=== PATIENT | male | born 1960 | race Caucasian/White ===

== ENCOUNTER 2019-07-07 14:55 | Emergency (ER) | payer MEDICARE, MEDICAID ==
[~2019-07-07] VITALS: Ht 165.1 cm; Wt 51.0 kg
[~2019-07-07 14:55] MED LIST: AZEL30SP BOTHNARES; CARV3.12 PO; DOLU50TA PO; EFAV600T PO; EMTR1TAB18 PO; ESCI10TA45 PO; FLO0.4C PO; FLUO15OI15 TP; FLUT16SP2 NS; IBUP-1984 PO; LAMI1TAB40 PO; LORA1TAB PO; QUET-1 PO; REM15T PO; TEST1.25 TD; [UNRECOGNIZED DRUG - CODE] PO; [UNRECOGNIZED DRUG - OTHER] INH
[2019-07-07 16:02] LABS: CLARITY,URINE CLEAR (Clear); COLOR,URINE YELLOW (Yellow); GLUCOSE, URINE NEGATIVE (Neg); KETONES,URINE NEGATIVE (Neg); LEUKOCYTE ESTERASE ,URINE NEGATIVE (Neg); NITRITES, URINE NEGATIVE (Neg); OCCULT BLOOD,URINE NEGATIVE (Neg); PROTEIN,URINE NEGATIVE (Neg); UROBILINOGEN,URINE 0.2 E.U/dL (0.2-1.0)
[2019-07-07 16:03] LABS: UA COLLECTION TYPE URINAL
[2019-07-07 16:11] LABS: BASOPHILS # (AUTO) 0.1 X10'3 (0-0.2); BASOPHILS % (AUTO) 0.6 % (0-1); EOSINOPHILS # (AUTO) 0.1 X10'3 (0-0.9); HEMATOCRIT 43.5 % (42.0-52.0); LYMPHOCYTES # (AUTO) 3.5 X10'3 (1.1-4.8); LYMPHOCYTES % (AUTO) 32.6 % (21-51); MEAN CORPUSCULAR HEMOGLOBIN 32.4 PG (27.0-31.0); MEAN CORPUSCULAR HGB CONC 34.5 g/dL (33.0-36.5); MEAN CORPUSCULAR VOLUME 93.7 FL (78-98); MEAN PLATELET VOLUME 8.2 FL (7.4-10.4); NEUTROPHILS # (AUTO) 6.1 X10'3 (1.8-7.7); NEUTROPHILS % (AUTO) 56.8 % (42-75); PLATELET COUNT 176 X10'3 (140-440); RED BLOOD COUNT 4.64 X10'6 (4.70-6.10); RED CELL DISTRIBUTION WIDTH 13.7 % (11.5-14.5); WHITE BLOOD COUNT 10.7 X10'3 (4.5-11.0)
[2019-07-07 16:23] LABS: PARTIAL THROMBOPLASTIN TIME 26 SECONDS (22-32)
[2019-07-07 16:25] LABS: ALANINE AMINOTRANSFERASE 18 U/L (12-78); ALBUMIN 3.9 G/DL (3.4-5.0); ALKALINE PHOSPHATASE 82 IU/L (46-116); ANION GAP 10 (8-16); ASPARTATE AMINO TRANSFERASE 17 U/L (10-37); BILIRUBIN,TOTAL 0.5 MG/DL (0.1-1.0); BLOOD UREA NITROGEN 14 MG/DL (7-18); BUN/CREATININE RATIO 14.3 (5.4-32.0); CALCIUM 8.7 MG/DL (8.5-10.1); CHLORIDE 102 MMOL/L (99-107); CREATININE 0.98 MG/DL (0.60-1.10); GLUCOSE 96 MG/DL (70-104); MAGNESIUM 1.9 MG/DL (1.5-2.4); POTASSIUM 3.9 MMOL/L (3.5-5.1); SODIUM 140 MMOL/L (135-145); TOTAL CARBON DIOXIDE 27.9 MMOL/L (24-32); TOTAL PROTEIN 7.7 G/DL (6.4-8.2); eGFR 78 ML/MIN
[2019-07-07] MEDS ORDERED: LEVO750T21 PO (17:45)
--- NOTE | 2019-07-07 17:49 | NUR ---
pt. went to the bathroom, when he returned pt. O2 sats went down and was tachycardic. dr. quarles, was in room and he will continue to monitor.
[2019-07-07] MEDS ORDERED: methylPREDNISolone sod succ 125mg/2ml vial IV ONE (17:50)
[2019-07-07] MEDS ORDERED: ipratropium/albuterol 3ml nebule NEB ONE ×2 (17:50→21:30)
--- NOTE | 2019-07-07 18:57 | NUR ---
pt states he is breathing better aftering taking a steroid. No s/s of respiratory distress. Pt eating crackers and drinking juice. He was given warm blankets at this request. Paged RT for breathing tx.
[2019-07-07 19:02] LABS: TROPONIN I < 0.04 NG/ML (0.0-0.05)
[2019-07-07] MEDS ORDERED: normal saline 1000ML IV soln IVB ONE (20:15)
--- NOTE | 2019-07-07 21:23 | NUR ---
pt was voiding in urinal at bedside and called out for help. He appeared to be SOB and states "i can't breath" Pt was 83% on RA. He was then placed on 3L and his Saturation went up to 96%. His lungs are clear except his anuel lower lungs are mildly diminished with mild wheezing. Dr. Manzano was notified and he assessed the pt. He would like pt to ambulate with someone but this time with an oximeter to see if patient's saturations drop. Pt is now resting comfortable and his O2 was turned off. His saturations are at 95% on RA. IV fluids still runing. 2nd Liter to be given next.
--- NOTE | 2019-07-07 21:29 | NUR ---
pt ambulated around the unit with a pulse ox, his saturation dropped to 92% and pulse in the 120's. aware. New order received for pt to get another breathing tx.
[2019-07-07 22:02] VITALS: BP 163/102
== END 2019-07-07 22:14 | disposition home or self-care (01) ==
LOC: ER 14:56
DX: J40 Bronchitis, not specified as acute or chronic (principal); I10 Essential (primary) hypertension; R79.1 Abnormal coagulation profile; F12.90 Cannabis use, unspecified, uncomplicated; Z87.442 Personal history of urinary calculi; Z86.19 Personal history of other infectious and parasitic diseases; Z60.2 Problems related to living alone; Z91.011 Allergy to milk products; Z79.899 Other long term (current) drug therapy
CPT/HCPCS: 36415; 71045; 80053; 81003; 83605; 83735; 84145; 84484; 85025; 85610; 85730; 87040; 93005; 94640; 96374; 99284; J2930; J7030; 94760

== ENCOUNTER 2020-06-29 11:55 | Emergency (ER) | payer MEDICARE, MEDICAID ==
[~2020-06-29] VITALS: Ht 165.1 cm; Wt 53.8 kg
[2020-06-29 12:45] LABS: CLARITY,URINE CLEAR (Clear); COLOR,URINE YELLOW (Yellow); GLUCOSE, URINE NEGATIVE (Neg); KETONES,URINE NEGATIVE (Neg); LEUKOCYTE ESTERASE ,URINE NEGATIVE (Neg); NITRITES, URINE NEGATIVE (Neg); OCCULT BLOOD,URINE NEGATIVE (Neg); PROTEIN,URINE NEGATIVE (Neg); UROBILINOGEN,URINE 0.2 E.U/dL (0.2-1.0)
[2020-06-29 12:47] LABS: UA COLLECTION TYPE CLN CATCH MIDSTREAM
[2020-06-29 13:12] LABS: BASOPHILS # (AUTO) 0.1 X10'3 (0-0.2); BASOPHILS % (AUTO) 1.2 % (0-1); EOSINOPHILS # (AUTO) 0.2 X10'3 (0-0.9); EOSINOPHILS % (AUTO) 2.9 % (0-6); HEMATOCRIT 47.6 % (42.0-52.0); HEMOGLOBIN 16.2 g/dl (14.0-17.9); LYMPHOCYTES % (AUTO) 30.6 % (21-51); MEAN CORPUSCULAR HEMOGLOBIN 31.4 PG (27.0-31.0); MEAN CORPUSCULAR HGB CONC 34.1 g/dL (33.0-36.5); MEAN PLATELET VOLUME 7.5 FL (7.4-10.4); MONOCYTES # (AUTO) 0.9 X10'3 (0-0.9); MONOCYTES % (AUTO) 13.4 % (2-12); NEUTROPHILS # (AUTO) 3.5 X10'3 (1.8-7.7); NEUTROPHILS % (AUTO) 51.9 % (42-75); PLATELET COUNT 282 X10'3 (140-440); RED BLOOD COUNT 5.17 X10'6 (4.70-6.10); RED CELL DISTRIBUTION WIDTH 13.4 % (11.5-14.5); WHITE BLOOD COUNT 6.7 X10'3 (4.5-11.0)
[2020-06-29 13:28] LABS: ALANINE AMINOTRANSFERASE 33 U/L (12-78); ALBUMIN 4.5 G/DL (3.4-5.0); ALBUMIN/GLOBULIN RATIO 1.1 (1.1-1.5); ALKALINE PHOSPHATASE 84 IU/L (46-116); ANION GAP 10 (8-16); ASPARTATE AMINO TRANSFERASE 27 U/L (10-37); BILIRUBIN,TOTAL 0.4 MG/DL (0.1-1.0); BLOOD UREA NITROGEN 13 MG/DL (7-18); BUN/CREATININE RATIO 11.6 (5.4-32.0); CALCIUM 9.6 MG/DL (8.5-10.1); CHLORIDE 102 MMOL/L (99-107); CREATININE 1.12 MG/DL (0.60-1.10); GLUCOSE 109 MG/DL (70-104); POTASSIUM 4.3 MMOL/L (3.5-5.1); SODIUM 139 MMOL/L (135-145); TOTAL CARBON DIOXIDE 27.3 MMOL/L (24-32); TOTAL PROTEIN 8.7 G/DL (6.4-8.2); eGFR 67 ML/MIN
[2020-06-29] MEDS ORDERED: GABA-530 PO (14:43)
[2020-06-30] MEDS ORDERED: DICL25TA10 PO (09:21)
[2020-06-30] MEDS ORDERED: ESCI20TA45 PO (10:12)
[2020-06-30] MEDS ORDERED: HYDR-3965 PO (10:13)
[2020-06-30] MEDS ORDERED: ZOLP5TAB8 PO (10:14)
== END 2020-06-29 15:06 | disposition home or self-care (01) ==
LOC: ER 11:56
DX: M79.641 Pain in right hand (principal); M79.631 Pain in right forearm; R73.03 Prediabetes; F12.90 Cannabis use, unspecified, uncomplicated; I10 Essential (primary) hypertension; Z87.442 Personal history of urinary calculi; Z21 Asymptomatic human immunodeficiency virus [HIV] infection status; Z91.011 Allergy to milk products; Z79.899 Other long term (current) drug therapy
CPT/HCPCS: 36415; 71045; 80053; 81003; 83605; 84145; 85025; 87040; 99284

== ENCOUNTER 2020-06-30 06:50 | Emergency (ER) | payer MEDICARE, MEDICAID ==
[~2020-06-30] VITALS: Ht 165.1 cm; Wt 54.1 kg
[~2020-06-30 06:50] MED LIST changes: +GABA-530 PO
[2020-06-30] MEDS ORDERED: normal saline 1000ML IV soln IV ONE (07:10)
[2020-06-30 08:06] LABS: BASOPHILS # (AUTO) 0.1 X10'3 (0-0.2); BASOPHILS % (AUTO) 0.9 % (0-1); EOSINOPHILS # (AUTO) 0.1 X10'3 (0-0.9); EOSINOPHILS % (AUTO) 0.6 % (0-6); HEMATOCRIT 47.5 % (42.0-52.0); HEMOGLOBIN 16.3 g/dl (14.0-17.9); LYMPHOCYTES # (AUTO) 2.2 X10'3 (1.1-4.8); LYMPHOCYTES % (AUTO) 18.7 % (21-51); MEAN CORPUSCULAR HEMOGLOBIN 31.5 PG (27.0-31.0); MEAN CORPUSCULAR HGB CONC 34.3 g/dL (33.0-36.5); MEAN CORPUSCULAR VOLUME 91.9 FL (78-98); MEAN PLATELET VOLUME 7.7 FL (7.4-10.4); MONOCYTES % (AUTO) 8.9 % (2-12); NEUTROPHILS # (AUTO) 8.2 X10'3 (1.8-7.7); NEUTROPHILS % (AUTO) 70.9 % (42-75); PLATELET COUNT 257 X10'3 (140-440); RED BLOOD COUNT 5.17 X10'6 (4.70-6.10); RED CELL DISTRIBUTION WIDTH 13.2 % (11.5-14.5); WHITE BLOOD COUNT 11.6 X10'3 (4.5-11.0)
[2020-06-30 08:18] LABS: ALBUMIN 4.3 G/DL (3.4-5.0); ANION GAP 11 (8-16); BLOOD UREA NITROGEN 10 MG/DL (7-18); BUN/CREATININE RATIO 9.8 (5.4-32.0); CALCIUM 9.2 MG/DL (8.5-10.1); CHLORIDE 100 MMOL/L (99-107); CREATININE 1.02 MG/DL (0.60-1.10); GLUCOSE 151 MG/DL (70-104); POTASSIUM 3.9 MMOL/L (3.5-5.1); SODIUM 136 MMOL/L (135-145); TOTAL CARBON DIOXIDE 25.4 MMOL/L (24-32); eGFR 74 ML/MIN
[2020-06-30] MEDS ORDERED: DICL25TA10 PO (09:21)
[2020-06-30] MEDS ORDERED: HYDROcodone/acetaminophen 5mg/325mg tablet PO ONE (09:25)
[2020-06-30] MEDS ORDERED: ESCI20TA45 PO (10:12)
[2020-06-30] MEDS ORDERED: HYDR-3965 PO (10:13)
[2020-06-30] MEDS ORDERED: ZOLP5TAB8 PO (10:14)
[2020-06-30] MEDS ORDERED: normal saline 1000ML IV soln IVB ONE (11:30)
--- NOTE | 2020-06-30 14:29 | NUR ---
CALLED JUANPABLO LEIVA AT [phone] TO [employer] UNIT OPERATOR PT. PER JUANPABLO SHE WILL BE THERE IN 30 MINS.
[2020-06-30 14:43] VITALS: BP 161/105
== END 2020-06-30 14:46 | disposition home or self-care (01) ==
LOC: ER 06:50
DX: M79.601 Pain in right arm (principal); M79.602 Pain in left arm; R00.0 Tachycardia, unspecified; M79.642 Pain in left hand; M79.641 Pain in right hand; I10 Essential (primary) hypertension; F12.90 Cannabis use, unspecified, uncomplicated; Z86.19 Personal history of other infectious and parasitic diseases; Z87.442 Personal history of urinary calculi; Z60.2 Problems related to living alone; Z91.011 Allergy to milk products; Z79.899 Other long term (current) drug therapy
CPT/HCPCS: 36415; 80048; 85025; 85651; 86140; 96360; 96361; 99285; J7030

== ENCOUNTER 2023-02-23 12:55 | Emergency (ER) | payer MEDICARE, MEDICAID ==
[~2023-02-23] VITALS: Ht 165.1 cm; Wt 54.5 kg
[~2023-02-23 12:55] MED LIST changes: -AZEL30SP BOTHNARES; -EFAV600T PO; -ESCI10TA45 PO; +ESCI20TA39 PO; -FLO0.4C PO; -FLUO15OI15 TP; -GABA-530 PO; +HYDR-3965 PO; -IBUP-1984 PO; -LAMI1TAB40 PO; -LORA1TAB PO; -REM15T PO; -TEST1.25 TD; +ZOLP5TAB8 PO; -[UNRECOGNIZED DRUG - CODE] PO
[2023-02-23 13:01] VITALS: BP 133/110
[2023-02-23] MEDS ORDERED: HYDROcodone/acetaminophen 10/325mg tab PO ONE (13:50)
[2023-02-23] MEDS ORDERED: HYDR-3973 PO (13:59)
== END 2023-02-23 14:04 | disposition home or self-care (01) ==
LOC: ER 12:56
DX: M54.40 Lumbago with sciatica, unspecified side (principal); G89.29 Other chronic pain; Z76.0 Encounter for issue of repeat prescription; I10 Essential (primary) hypertension; F12.10 Cannabis abuse, uncomplicated; Z91.011 Allergy to milk products; Z79.899 Other long term (current) drug therapy
CPT/HCPCS: 99283

== ENCOUNTER 2023-09-02 07:13 | Emergency (ER) | payer MEDICARE, MEDICAID ==
[~2023-09-02] VITALS: Ht 165.1 cm; Wt 53.4 kg
[2023-09-02 07:22] VITALS: BP 145/98; PULSE 111; O2SAT 96
[2023-09-02] MEDS ORDERED: HYDROcodone/acetaminophen 5mg/325mg tablet PO ONE (08:55)
[2023-09-02 09:58] VITALS: RESP 16
== END 2023-09-02 09:58 | disposition home or self-care (01) ==
LOC: ER 07:14
DX: S16.1XXA Strain of muscle, fascia and tendon at neck level, initial encounter (principal); S46.911A Strain of unspecified muscle, fascia and tendon at shoulder and upper arm level, right arm, initial encounter; S66.912A Strain of unspecified muscle, fascia and tendon at wrist and hand level, left hand, initial encounter; I10 Essential (primary) hypertension; F12.90 Cannabis use, unspecified, uncomplicated; Z91.011 Allergy to milk products; Z79.899 Other long term (current) drug therapy; V89.2XXA Person injured in unspecified motor-vehicle accident, traffic, initial encounter; Y93.89 Activity, other specified; Y92.89 Other specified places as the place of occurrence of the external cause; Y99.8 Other external cause status
CPT/HCPCS: 72040; 73010; 73110; 99284

== ENCOUNTER 2023-11-21 09:19 | Outpatient (CLI) | payer MEDICARE, MEDICAID | END 2023-11-21 23:59 | disposition home or self-care (01) | LOC: RAD 09:19 | PROVIDERS: ATTEND Nurse Practitioner | DX: J44.1 Chronic obstructive pulmonary disease with (acute) exacerbation (principal) | CPT/HCPCS: 71046 ==

== ENCOUNTER 2024-07-16 18:21 | Inpatient (IN) | payer MEDICARE, MEDICAID ==
[~2024-07-16] VITALS: Ht 165.1 cm; Wt 55.0 kg
[2024-07-16 20:51] LABS: BASOPHILS # (AUTO) 0.1 X10'3 (0-0.2); BASOPHILS % (AUTO) 0.4 % (0-1); EOSINOPHILS # (AUTO) 0.1 X10'3 (0-0.9); EOSINOPHILS % (AUTO) 0.4 % (0-6); HEMATOCRIT 40.7 % (42.0-52.0); HEMOGLOBIN 13.6 g/dl (14.0-17.9); LYMPHOCYTES # (AUTO) 2.3 X10'3 (1.1-4.8); LYMPHOCYTES % (AUTO) 13.7 % (21-51); MEAN CORPUSCULAR HEMOGLOBIN 31.1 PG (27.0-31.0); MEAN CORPUSCULAR HGB CONC 33.5 g/dL (33.0-36.5); MEAN CORPUSCULAR VOLUME 92.8 FL (78-98); MEAN PLATELET VOLUME 7.8 FL (7.4-10.4); MONOCYTES # (AUTO) 1.2 X10'3 (0-0.9); NEUTROPHILS # (AUTO) 13.4 X10'3 (1.8-7.7); NEUTROPHILS % (AUTO) 78.5 % (42-75); PLATELET COUNT 227 X10'3 (140-440); RED BLOOD COUNT 4.39 X10'6 (4.70-6.10); RED CELL DISTRIBUTION WIDTH 13.5 % (11.5-14.5); WHITE BLOOD COUNT 17.1 X10'3 (4.5-11.0)
[2024-07-16] MEDS: acetaminophen 325mg tablet PO STA (20:54)
[2024-07-16] MEDS: normal saline 1000ml 1,000 ML IV ONE (20:54)
[2024-07-16] MEDS: ipratropium/albuterol 3ml nebule NEB ONE (21:04)
[2024-07-16 21:05] VITALS: PULSE 104; O2SAT 91
[2024-07-16 21:10] VITALS: PULSE 110; RESP 18; O2SAT 90
[2024-07-16 21:28] LABS: ALBUMIN 3.9 G/DL (3.4-5.0); ANION GAP 9 (8-16); BLOOD UREA NITROGEN 18 MG/DL (7-18); BUN/CREATININE RATIO 15.5 (10.0-20.0); CALCIUM 8.9 MG/DL (8.5-10.1); CHLORIDE 98 MMOL/L (99-107); CREATININE 1.16 MG/DL (0.60-1.10); GLUCOSE 113 MG/DL (70-104); MAGNESIUM 2.1 MG/DL (1.5-2.4); POTASSIUM 4.2 MMOL/L (3.5-5.1); SODIUM 137 MMOL/L (135-145); TOTAL CARBON DIOXIDE 29.9 MMOL/L (24-32); eCRCL 50 ML/MIN; eGFR 63 ML/MIN
[2024-07-16 21:35] LABS: BILIRUBIN,URINE NEGATIVE (Neg); CLARITY,URINE CLEAR (Clear); COLOR,URINE YELLOW (Yellow); GLUCOSE, URINE NEGATIVE (Neg); KETONES,URINE NEGATIVE (Neg); LEUKOCYTE ESTERASE ,URINE NEGATIVE (Neg); NITRITES, URINE NEGATIVE (Neg); OCCULT BLOOD,URINE NEGATIVE (Neg); PROTEIN,URINE NEGATIVE (Neg); UROBILINOGEN,URINE 0.2 E.U/dL (0.2-1.0)
[2024-07-16 21:40] LABS: UA COLLECTION TYPE CLN CATCH MIDSTREAM
[2024-07-16 22:03] LABS: PRO BRAIN NATRIURETIC PEPTIDE 502 PG/ML (0-125)
[2024-07-16] MEDS: CefTRIAXone 2gm/D5W 50ml BAG 50 ML IV SCH (22:43)
[2024-07-16] MEDS: azithromycin/NS 500mg/250ml 250 ML IV ONE (22:47)
[2024-07-16] MEDS: normal saline 1000ml 1,000 ML IV SCH ×2 (23:10→23:52)
[2024-07-16] MEDS ORDERED: magnesium sulf-water 2g/50mL 50 ML IV PRN (23:10)
[2024-07-16] MEDS ORDERED: potassium Cl 40MEQ/1/2NS 520ml 520 ML IV PRN (23:10)
[2024-07-16] MEDS ORDERED: mag hydrox/Alum hydrox/simeth 30ml oral suspension PO PRN (23:10)
[2024-07-16] MEDS ORDERED: magnesium Cl slow-release 64mg tablet PO PRN (23:10)
[2024-07-16] MEDS ORDERED: magnesium sulf-water 4G/100mL 100 ML IV PRN (23:10)
[2024-07-16] MEDS ORDERED: potassium Cl 20 mEq SR tablet PO PRN ×2 (23:10)
[2024-07-16] MEDS ORDERED: magnesium hydroxide 30ml (MOM) UD suspension PO PRN (23:10)
[2024-07-16] MEDS ORDERED: ondansetron/PF 4mg/2ml inj IV PRN (23:10)
[2024-07-16] MEDS ORDERED: acetaminophen 325mg tablet PO PRN (23:10)
[2024-07-16] MEDS: gabapentin 300mg capsule PO ONE (23:28)
[2024-07-16] MEDS: QUEtiapine 25mg tablet PO ONE (23:28)
[2024-07-16] MEDS: quetiapine 100mg tablet PO ONE (23:29)
[2024-07-16] MEDS: HYDROcodone/acetaminophen 10/325mg tab PO ONE (23:29)
[2024-07-17] VITALS (15 sets, daily range): BP systolic 107–158; BP diastolic 65–107; PULSE 90–123; RESP 16–20; TEMP 97.5–98.1; O2SAT 93–97
[2024-07-17 03:06] LABS: BASOPHILS % (AUTO) 0.2 % (0-1); EOSINOPHILS # (AUTO) 0.1 X10'3 (0-0.9); EOSINOPHILS % (AUTO) 0.9 % (0-6); HEMATOCRIT 35.4 % (42.0-52.0); HEMOGLOBIN 11.8 g/dl (14.0-17.9); LYMPHOCYTES # (AUTO) 2.7 X10'3 (1.1-4.8); LYMPHOCYTES % (AUTO) 20.7 % (21-51); MEAN CORPUSCULAR HEMOGLOBIN 31.3 PG (27.0-31.0); MEAN CORPUSCULAR HGB CONC 33.4 g/dL (33.0-36.5); MEAN CORPUSCULAR VOLUME 93.6 FL (78-98); MEAN PLATELET VOLUME 7.7 FL (7.4-10.4); MONOCYTES # (AUTO) 1.3 X10'3 (0-0.9); MONOCYTES % (AUTO) 9.6 % (2-12); NEUTROPHILS % (AUTO) 68.6 % (42-75); PLATELET COUNT 190 X10'3 (140-440); RED BLOOD COUNT 3.78 X10'6 (4.70-6.10); RED CELL DISTRIBUTION WIDTH 13.9 % (11.5-14.5); WHITE BLOOD COUNT 13.2 X10'3 (4.5-11.0)
[2024-07-17 03:15] LABS: ANION GAP 7 (8-16); BLOOD UREA NITROGEN 16 MG/DL (7-18); BUN/CREATININE RATIO 16.3 (10.0-20.0); CALCIUM 8.4 MG/DL (8.5-10.1); CHLORIDE 107 MMOL/L (99-107); CREATININE 0.98 MG/DL (0.60-1.10); GLUCOSE 102 MG/DL (70-104); MAGNESIUM 2.1 MG/DL (1.5-2.4); SODIUM 142 MMOL/L (135-145); TOTAL CARBON DIOXIDE 28.4 MMOL/L (24-32); eCRCL 59 ML/MIN; eGFR 77 ML/MIN
[2024-07-17] MEDS: ipratropium/albuterol 3ml nebule NEB SCH (03:15)
[2024-07-17] MEDS: predniSONE 20 mg tablet PO SCH (07:22)
[2024-07-17] MEDS: docusate sod 100mg capsule PO SCH (07:23)
[2024-07-17] MEDS: guaiFENesin ER 600mg tablet PO SCH (07:23)
[2024-07-17] MEDS: enoxaparin 40mg/0.4ml syringe SUBCUT SCH (07:24)
[2024-07-17] MEDS: PERFLUTREN PROTEIN-A MICROSPHR (Optison) 0.22 MG/ML 3ML VIAL IV ONE (07:50)
[2024-07-17] MEDS ORDERED: escitalopram 20mg tablet PO SCH (08:00)
[2024-07-17] MEDS ORDERED: zolpidem 5mg tablet PO PRN (08:40)
[2024-07-17] MEDS: K and/or MAG REPLACEMENT MC SCH (09:32)
[2024-07-17] MEDS: carVEDilol 3.125mg tablet PO SCH (09:45)
[2024-07-17] MEDS: fluticasone nasal spray 16GM bottle NS SCH (09:45)
[2024-07-17] MEDS ORDERED: GABA300C PO (09:45)
[2024-07-17] MEDS: ESCITALOPRAM 10 mg tablet 10 MG TABLET PO SCH (09:46)
[2024-07-17] MEDS ORDERED: ALBU8HFA PO (10:05)
[2024-07-17] MEDS ORDERED: FLO0.4C PO (10:05)
[2024-07-17] MEDS ORDERED: ASPI81TA52 PO (10:05)
[2024-07-17] MEDS ORDERED: CYCL-394 PO (10:05)
[2024-07-17] MEDS ORDERED: UMEC1DIS INH (10:05)
[2024-07-17] MEDS ORDERED: cyclobenzaprine 10mg tablet PO PRN (11:10)
[2024-07-17] MEDS ORDERED: hydrALAZINE 20mg/ml inj. IV PRN (11:40)
[2024-07-17] MEDS ORDERED: HYDROmorphone/PF 0.2 MG/ML SYRINGE IV PRN (11:40)
[2024-07-17] MEDS: normal saline 500ml IV soln 500 ML IV ONE (12:10)
[2024-07-17] MEDS ORDERED: BUPR100T13 PO (14:07)
[2024-07-17] MEDS: gabapentin 100mg capsule PO SCH (14:16)
[2024-07-17] MEDS: HYDROcodone/acetaminophen 5mg/325mg tablet PO PRN (14:18)
[2024-07-17] MEDS ORDERED: emtricitabine/tenofovir 200mg/300mg tablet PO SCH (15:35)
[2024-07-17] MEDS: lactose-reduced food (Ensure Enlive) - 237ml bottle PO SCH ×2 (18:00→18:23)
[2024-07-17] MEDS: famotidine 20mg tablet PO SCH (20:32)
[2024-07-17] MEDS: gabapentin 300mg capsule PO SCH (20:33)
[2024-07-17] MEDS: QUEtiapine 25mg tablet PO SCH (20:35)
[2024-07-17] MEDS: quetiapine 100mg tablet PO SCH (20:36)
[2024-07-17] MEDS: raltegravir 400mg tablet PO SCH (20:37)
[2024-07-17] MEDS: CefTRIAXone/D5W-Rocephin 1gm 50 ML IV SCH (20:38)
[2024-07-17] MEDS ORDERED: quetiapine 100mg tablet PO SCH (21:00)
[2024-07-17] MEDS: zolpidem 5mg tablet PO PRN (21:31)
[2024-07-17] MEDS: azithromycin/NS 500mg/250ml 250 ML IV SCH (23:14)
[2024-07-18] VITALS (10 sets, daily range): BP systolic 111–166; BP diastolic 68–109; PULSE 86–129; RESP 16–22; TEMP 97.9–98.3; O2SAT 92–97
[2024-07-18] MEDS: albuterol 2.5 MG/3 ML nebule NEB PRN (00:34)
[2024-07-18] MEDS: benzonatate 100mg capsule PO PRN (01:08)
[2024-07-18 06:34] LABS: BASOPHILS % (AUTO) 0 % (0-1); EOSINOPHILS % (AUTO) 0.3 % (0-6); HEMATOCRIT 34.6 % (42.0-52.0); HEMOGLOBIN 11.8 g/dl (14.0-17.9); LYMPHOCYTES % (AUTO) 20.3 % (21-51); MEAN CORPUSCULAR HEMOGLOBIN 31.7 PG (27.0-31.0); MEAN CORPUSCULAR VOLUME 93.4 FL (78-98); MEAN PLATELET VOLUME 7.6 FL (7.4-10.4); MONOCYTES # (AUTO) 1.3 X10'3 (0-0.9); MONOCYTES % (AUTO) 8.4 % (2-12); NEUTROPHILS # (AUTO) 10.6 X10'3 (1.8-7.7); PLATELET COUNT 200 X10'3 (140-440); RED BLOOD COUNT 3.71 X10'6 (4.70-6.10); RED CELL DISTRIBUTION WIDTH 14.1 % (11.5-14.5)
[2024-07-18 06:42] LABS: ALBUMIN 3.1 G/DL (3.4-5.0); ANION GAP 6 (8-16); BLOOD UREA NITROGEN 14 MG/DL (7-18); CALCIUM 7.8 MG/DL (8.5-10.1); CHLORIDE 109 MMOL/L (99-107); GLUCOSE 95 MG/DL (70-104); MAGNESIUM 1.8 MG/DL (1.5-2.4); POTASSIUM 3.4 MMOL/L (3.5-5.1); SODIUM 147 MMOL/L (135-145); TOTAL CARBON DIOXIDE 32.1 MMOL/L (24-32); eCRCL 58 ML/MIN; eGFR 75 ML/MIN
[2024-07-18 07:09] LABS: HEMOGLOBIN A1C 6.2 % (4.5-6.2)
[2024-07-18] MEDS ORDERED: DOLUTEGRAVIR SODIUM 50 MG PO SCH (08:00)
[2024-07-18] MEDS: tamsulosin 0.4mg capsule PO SCH (08:00)
[2024-07-18] MEDS ORDERED: Emtricitabine/Tenofov Alafenam (Descovy 200-25 mg Tablet) PO SCH (08:00)
[2024-07-18] MEDS: Umeclidinium Brm/Vilanterol Tr (Anoro Ellipta 62.5-25 Mcg INH) IH SCH (08:00)
[2024-07-18] MEDS: emtricitabine/tenofovir 200mg/300mg tablet PO SCH (08:00)
[2024-07-18] MEDS ORDERED: CARV-50 PO (08:52)
[2024-07-18] MEDS: aspirin 81mg, enteric-coated 1 TAB TABLET.DR PO SCH (08:56)
[2024-07-18] MEDS ORDERED: GUAI600T45 PO (11:41)
[2024-07-18] MEDS ORDERED: PRED10TA23 PO (11:41)
[2024-07-18] MEDS ORDERED: CEFD300C3 PO (11:41)
[2024-07-18] MEDS ORDERED: IPRA3AMP9 IH (11:43)
[2024-07-18] MEDS ORDERED: NICO-631 TOP (11:56)
[2024-07-18] MEDS: carVEDilol 3.125mg tablet PO SCH (12:06)
[2024-07-18] MEDS: nicotine 14mg patch - 24hr TD SCH (12:06)
[2024-07-18] MEDS ORDERED: IPRA3AMP9 NEB (14:27)
== END 2024-07-18 13:53 | disposition home or self-care (01) | DRG 312 ==
LOC: ER 18:24 → ED HOLD 23:16 → EDBEDREQ 07-17 05:00 → ORTHO 4S 07-17 05:43
PROVIDERS: ADMIT Student in an Organized Health Care Education/Training Program; ATTEND Internal Medicine
DX: I95.1 Orthostatic hypotension (principal); J44.1 Chronic obstructive pulmonary disease with (acute) exacerbation; E46 Unspecified protein-calorie malnutrition; J96.11 Chronic respiratory failure with hypoxia; Z20.822 Contact with and (suspected) exposure to COVID-19; J06.9 Acute upper respiratory infection, unspecified; E86.0 Dehydration; R54 Age-related physical debility; E88.09 Other disorders of plasma-protein metabolism, not elsewhere classified; E83.51 Hypocalcemia; G89.4 Chronic pain syndrome; G62.89 Other specified polyneuropathies; F32.A Depression, unspecified; F41.9 Anxiety disorder, unspecified; D64.9 Anemia, unspecified; D72.829 Elevated white blood cell count, unspecified; F17.210 Nicotine dependence, cigarettes, uncomplicated; I10 Essential (primary) hypertension; Z68.20 Body mass index [BMI] 20.0-20.9, adult; Z91.011 Allergy to milk products; Z82.49 Family history of ischemic heart disease and other diseases of the circulatory system
CPT/HCPCS: 36415; 70450; 71045; 80048; 81003; 83036; 83605; 83735; 83880; 84145; 84484; 85025; 87040; 87081; 87502; 87503; 87811; 93005; 93308; 94640; 94760; 96365; 96367; 97116; 97161; 97530; 99285; A4615; G0378; J0456; J0696; J1650; J7030; J7040; J7512

== ENCOUNTER 2024-08-14 06:55 | Inpatient (IN) | payer MEDICARE, MEDICAID ==
[2024-08-14] VITALS (9 sets, daily range): BP systolic 118–120; BP diastolic 70–79; PULSE 106–135; RESP 16–27; TEMP 98.3; O2SAT 92–98
[~2024-08-14] VITALS: Ht 165.1 cm; Wt 50.8 kg
[~2024-08-14 06:55] MED LIST changes: +ALBU8HFA PO; +ASPI81TA52 PO; +BUPR100T13 PO; +CARV-50 PO; -CARV3.12 PO; +CYCL-394 PO; -ESCI20TA39 PO; +FLO0.4C PO; +GABA300C PO; +GUAI600T45 PO; +IPRA3AMP9 IH; +IPRA3AMP9 NEB; +PRED10TA23 PO; +UMEC1DIS INH
[2024-08-14] MEDS: ipratropium/albuterol 3ml nebule NEB ONE (07:39)
[2024-08-14] MEDS: ondansetron/PF 4mg/2ml inj IV ONE (07:57)
[2024-08-14 07:59] LABS: BASOPHILS % (AUTO) 0.4 % (0-1); EOSINOPHILS # (AUTO) 0.5 X10'3 (0-0.9); EOSINOPHILS % (AUTO) 5.8 % (0-6); HEMATOCRIT 37.8 % (42.0-52.0); LYMPHOCYTES # (AUTO) 1.6 X10'3 (1.1-4.8); LYMPHOCYTES % (AUTO) 19.8 % (21-51); MEAN CORPUSCULAR HEMOGLOBIN 32.1 PG (27.0-31.0); MEAN CORPUSCULAR HGB CONC 34.3 g/dL (33.0-36.5); MEAN CORPUSCULAR VOLUME 93.7 FL (78-98); MONOCYTES # (AUTO) 0.9 X10'3 (0-0.9); MONOCYTES % (AUTO) 10.3 % (2-12); NEUTROPHILS # (AUTO) 5.2 X10'3 (1.8-7.7); NEUTROPHILS % (AUTO) 63.7 % (42-75); PLATELET COUNT 239 X10'3 (140-440); RED BLOOD COUNT 4.04 X10'6 (4.70-6.10); RED CELL DISTRIBUTION WIDTH 13.7 % (11.5-14.5); WHITE BLOOD COUNT 8.2 X10'3 (4.5-11.0)
[2024-08-14] MEDS: morphine 4 MG/ML inj SYRINge IV ONE (07:59)
[2024-08-14] MEDS: methylPREDNISolone sod succ 125mg/2ml vial IV ONE (08:01)
[2024-08-14 08:07] LABS: D-DIMER 0.49 MG/L FEU (0-0.50)
[2024-08-14 08:20] LABS: ALBUMIN 3.6 G/DL (3.4-5.0); ANION GAP 4 (8-16); BLOOD UREA NITROGEN 11 MG/DL (7-18); BUN/CREATININE RATIO 10.9 (10.0-20.0); CALCIUM 8.8 MG/DL (8.5-10.1); CHLORIDE 103 MMOL/L (99-107); CREATININE 1.01 MG/DL (0.60-1.10); GLUCOSE 137 MG/DL (70-104); POTASSIUM 4.1 MMOL/L (3.5-5.1); PRO BRAIN NATRIURETIC PEPTIDE 323 PG/ML (0-125); SODIUM 140 MMOL/L (135-145); TOTAL CARBON DIOXIDE 32.8 MMOL/L (24-32); eCRCL 53 ML/MIN; eGFR 74 ML/MIN
[2024-08-14] MEDS: normal saline 1000ml 1,000 ML IV ONE (08:39)
[2024-08-14] MEDS: acetaminophen 1,000mg/100ml IV 100 ML IV SCH (08:40)
[2024-08-14] MEDS ORDERED: azithromycin/NS 500mg/250ml 250 ML IV ONE (11:50)
[2024-08-14] MEDS: albuterol 2.5 MG/3 ML nebule CONTNEB ONE (11:56)
[2024-08-14] MEDS ORDERED: acetaminophen 650mg rectal suppository RC PRN (12:20)
[2024-08-14] MEDS ORDERED: ondansetron/PF 4mg/2ml inj IV PRN (12:20)
[2024-08-14] MEDS ORDERED: ondansetron 4mg rapidly disintigrating tab PO PRN (12:20)
[2024-08-14] MEDS ORDERED: diphenhydrAMINE 25mg capsule PO PRN (12:20)
[2024-08-14] MEDS ORDERED: diphenhydrAMINE 50 mg/ml inj IV PRN (12:20)
[2024-08-14] MEDS ORDERED: HYDROcodone/acetaminophen 5mg/325mg tablet PO PRN (12:20)
[2024-08-14] MEDS ORDERED: acetaminophen 325mg tablet PO PRN ×2 (12:20)
[2024-08-14] MEDS ORDERED: mag hydrox/Alum hydrox/simeth 30ml oral suspension PO PRN (12:20)
[2024-08-14] MEDS ORDERED: bisacodyl 10mg suppository rectal RC PRN (12:20)
[2024-08-14] MEDS ORDERED: magnesium hydroxide 30ml (MOM) UD suspension PO PRN (12:20)
[2024-08-14] MEDS: metoprolol tartrate 1mg/ml inj IV ONE (12:38)
[2024-08-14] MEDS: CefTRIAXone/D5W-Rocephin 1gm 50 ML IV ONE (12:46)
[2024-08-14] MEDS: nitroGLYCERIN 0.4mg/hour patch TD ONE (13:11)
[2024-08-14] MEDS: normal saline 1000ml 1,000 ML IV SCH (13:13)
[2024-08-14 13:37] LABS: HEMOGLOBIN A1C 6.2 % (4.5-6.2)
[2024-08-14] MEDS: azithromycin/NS 500mg/250ml 250 ML IV ONE (13:42)
[2024-08-14 13:49] LABS: CREATINE KINASE 102 U/L (39-308); LIPASE 22 U/L (16-77); MAGNESIUM 1.9 MG/DL (1.5-2.4); PHOSPHORUS 1.4 MG/DL (2.3-4.5); PRO BRAIN NATRIURETIC PEPTIDE 535 PG/ML (0-125); THYROID STIMULATING HORMONE 0.09 ulU/ml (0.34-4.50)
[2024-08-14 13:57] LABS: URINE AMPHETAMINE SCREEN NEGATIVE (Neg); URINE BARBITUATE SCREEN NEGATIVE (Neg); URINE BENZODIAZEPINES SCREEN NEGATIVE (Neg); URINE CANNABINOID SCREEN NEGATIVE (Neg); URINE COCAINE SCREEN NEGATIVE (Neg); URINE METHADONE SCREEN NEGATIVE (Neg); URINE OPIATE SCREEN POSITIVE (Neg); URINE PHENCYCLIDINE SCREEN NEGATIVE (Neg)
[2024-08-14] MEDS: morphine 2 MG/ML inj. syringe IV PRN ×2 (15:40→21:44)
[2024-08-14] MEDS: methylPREDNISolone sod succ/PF 40mg inj. IV SCH (16:10)
[2024-08-14] MEDS: docusate sod 100mg capsule PO SCH (16:15)
[2024-08-14] MEDS: heparin, porcine 5000 units/ml vial SQ SCH (21:25)
[2024-08-14] MEDS: guaiFENesin ER 600mg tablet PO ONE ×2 (21:25→21:26)
[2024-08-14] MEDS ORDERED: cyclobenzaprine 10mg tablet PO PRN (21:35)
[2024-08-14] MEDS: gabapentin 300mg capsule PO ONE (22:13)
[2024-08-14] MEDS: quetiapine 100mg tablet PO ONE (22:13)
[2024-08-14] MEDS: zolpidem 5mg tablet PO PRN (22:14)
[2024-08-14] MEDS: QUEtiapine 25mg tablet PO ONE (22:17)
[2024-08-15] VITALS (11 sets, daily range): BP systolic 118–164; BP diastolic 77–101; PULSE 99–125; RESP 17–24; TEMP 97.6–97.9; O2SAT 91–96
[2024-08-15 05:57] LABS: BASOPHILS % (AUTO) 0 % (0-1); EOSINOPHILS % (AUTO) 0 % (0-6); HEMATOCRIT 31.5 % (42.0-52.0); HEMOGLOBIN 10.6 g/dl (14.0-17.9); LYMPHOCYTES # (AUTO) 1.4 X10'3 (1.1-4.8); LYMPHOCYTES % (AUTO) 16.9 % (21-51); MEAN CORPUSCULAR HEMOGLOBIN 31.7 PG (27.0-31.0); MEAN CORPUSCULAR HGB CONC 33.8 g/dL (33.0-36.5); MEAN PLATELET VOLUME 7.4 FL (7.4-10.4); MONOCYTES # (AUTO) 0.3 X10'3 (0-0.9); MONOCYTES % (AUTO) 3.9 % (2-12); NEUTROPHILS # (AUTO) 6.8 X10'3 (1.8-7.7); NEUTROPHILS % (AUTO) 79.2 % (42-75); PLATELET COUNT 239 X10'3 (140-440); RED BLOOD COUNT 3.35 X10'6 (4.70-6.10); WHITE BLOOD COUNT 8.5 X10'3 (4.5-11.0)
[2024-08-15 06:23] LABS: ALANINE AMINOTRANSFERASE 18 U/L (12-78); ALBUMIN 2.8 G/DL (3.4-5.0); ALBUMIN/GLOBULIN RATIO 0.9 (1.1-1.5); ALKALINE PHOSPHATASE 68 IU/L (46-116); ANION GAP 4 (8-16); ASPARTATE AMINO TRANSFERASE 16 U/L (10-37); BILIRUBIN,TOTAL 0.2 MG/DL (0.1-1.0); BLOOD UREA NITROGEN 12 MG/DL (7-18); BUN/CREATININE RATIO 13.6 (10.0-20.0); CHLORIDE 109 MMOL/L (99-107); CHOL/HDL RATIO 2.6 (0.00-4.99); CHOLESTEROL 138 MG/DL (0-200); CREATININE 0.88 MG/DL (0.60-1.10); GLUCOSE 141 MG/DL (70-104); HDL CHOLESTEROL 54 MG/DL (35-60); LDL CHOLESTEROL 72 MG/DL (50-100); POTASSIUM 4.1 MMOL/L (3.5-5.1); SODIUM 143 MMOL/L (135-145); TOTAL CARBON DIOXIDE 29.6 MMOL/L (24-32); TOTAL PROTEIN 5.8 G/DL (6.4-8.2); TRIGLYCERIDES 58 MG/DL (20-135); eCRCL 61 ML/MIN; eGFR 87 ML/MIN
[2024-08-15] MEDS: VILANTEROL TR IH SCH (08:00)
[2024-08-15] MEDS: UMECLIDINIUM BRM IH SCH (08:00)
[2024-08-15] MEDS: pantoprazole 40mg Tablet.DR PO SCH (08:18)
[2024-08-15] MEDS: gabapentin 300mg capsule PO SCH (08:19)
[2024-08-15] MEDS: aspirin 81mg, enteric-coated 1 TAB TABLET.DR PO SCH (08:21)
[2024-08-15] MEDS: tamsulosin 0.4mg capsule PO SCH (08:22)
[2024-08-15] MEDS: buPROPion 100mg tablet PO SCH (08:22)
[2024-08-15] MEDS: carVEDilol 12.5mg tablet PO SCH (08:22)
[2024-08-15] MEDS: nicotine 21mg patch - 24 hr TD SCH (08:24)
[2024-08-15] MEDS: CefTRIAXone/D5W-Rocephin 1gm 50 ML IV SCH (08:25)
[2024-08-15] MEDS: (Dolutegravir Sodium (Tivicay) 1 TAB) PO SCH (08:32)
[2024-08-15] MEDS: HYDROcodone/acetaminophen 10/325mg tab PO PRN (08:50)
[2024-08-15] MEDS: azithromycin/NS 500mg/250ml 250 ML IV SCH (09:31)
[2024-08-15] MEDS: ipratropium/albuterol 3ml nebule NEB PRN (10:38)
[2024-08-15] MEDS: lactose-reduced food (Ensure Enlive) - 237ml bottle PO SCH (12:17)
[2024-08-15] MEDS ORDERED: Neutra Phos packet PO PRN (15:45)
[2024-08-15] MEDS ORDERED: sodium phosphate inj. 15 MMOL in dextrose 5%-water 250 ML IV PRN (15:45)
[2024-08-15] MEDS: sodium phosphate inj. 30 MMOL in dextrose 5%-water 250 ML IV PRN (16:24)
[2024-08-15 17:32] LABS: BILIRUBIN,URINE NEGATIVE (Neg); CLARITY,URINE CLEAR (Clear); COLOR,URINE YELLOW (Yellow); GLUCOSE, URINE NEGATIVE (Neg); KETONES,URINE NEGATIVE (Neg); LEUKOCYTE ESTERASE ,URINE NEGATIVE (Neg); NITRITES, URINE NEGATIVE (Neg); OCCULT BLOOD,URINE NEGATIVE (Neg); PROTEIN,URINE NEGATIVE (Neg); UROBILINOGEN,URINE 0.2 E.U/dL (0.2-1.0)
[2024-08-15 17:37] LABS: UA COLLECTION TYPE NON-SPECIFIED
[2024-08-15] MEDS: quetiapine 100mg tablet PO SCH (20:14)
[2024-08-15 20:23] LABS: OCCULT BLOOD STOOL NEGATIVE (Neg)
[2024-08-15] MEDS ORDERED: QUEtiapine 25mg tablet PO SCH (21:00)
[2024-08-16] VITALS (9 sets, daily range): BP systolic 143–157; BP diastolic 83–110; PULSE 102–128; RESP 15–20; TEMP 97.1–98.6; O2SAT 92–97
[2024-08-16 06:13] LABS: BASOPHILS % (AUTO) 0 % (0-1); EOSINOPHILS % (AUTO) 0.1 % (0-6); HEMATOCRIT 31.4 % (42.0-52.0); HEMOGLOBIN 10.5 g/dl (14.0-17.9); LYMPHOCYTES # (AUTO) 1.7 X10'3 (1.1-4.8); LYMPHOCYTES % (AUTO) 13.3 % (21-51); MEAN CORPUSCULAR HEMOGLOBIN 31.7 PG (27.0-31.0); MEAN CORPUSCULAR HGB CONC 33.5 g/dL (33.0-36.5); MEAN CORPUSCULAR VOLUME 94.8 FL (78-98); MEAN PLATELET VOLUME 7.8 FL (7.4-10.4); MONOCYTES # (AUTO) 0.6 X10'3 (0-0.9); MONOCYTES % (AUTO) 4.6 % (2-12); NEUTROPHILS # (AUTO) 10.6 X10'3 (1.8-7.7); PLATELET COUNT 286 X10'3 (140-440); RED BLOOD COUNT 3.32 X10'6 (4.70-6.10); RED CELL DISTRIBUTION WIDTH 13.8 % (11.5-14.5); WHITE BLOOD COUNT 12.9 X10'3 (4.5-11.0)
[2024-08-16 06:51] LABS: ALANINE AMINOTRANSFERASE 22 U/L (12-78); ALBUMIN 2.8 G/DL (3.4-5.0); ALBUMIN/GLOBULIN RATIO 0.9 (1.1-1.5); ALKALINE PHOSPHATASE 70 IU/L (46-116); ANION GAP 9 (8-16); ASPARTATE AMINO TRANSFERASE 25 U/L (10-37); BILIRUBIN,TOTAL 0.2 MG/DL (0.1-1.0); BLOOD UREA NITROGEN 20 MG/DL (7-18); BUN/CREATININE RATIO 24.1 (10.0-20.0); CALCIUM 8.4 MG/DL (8.5-10.1); CHLORIDE 107 MMOL/L (99-107); CREATININE 0.83 MG/DL (0.60-1.10); GLUCOSE 150 MG/DL (70-104); POTASSIUM 4.2 MMOL/L (3.5-5.1); SODIUM 145 MMOL/L (135-145); TOTAL CARBON DIOXIDE 29.5 MMOL/L (24-32); TOTAL PROTEIN 5.9 G/DL (6.4-8.2); eCRCL 65 ML/MIN; eGFR > 90 ML/MIN
[2024-08-16] MEDS ORDERED: TEST5GEL18 (08:24)
[2024-08-16 11:08] LABS: % IMMATURE GRANULOCYTES 0 % (Not Estab.); BASOS 0 % (Not Estab.); EOS 0 % (Not Estab.); HEMATOCRIT 39.4 % (37.5-51.0); HEMATOLOGY COMMENTS: Note: (.); HEMOGLOBIN 12.7 g/dL (13.0-17.7); LYMPHS 13 % (Not Estab.); LYMPHS (ABSOLUTE) 0.9 x10E3/uL (0.7-3.1); MCH 30.8 pg (26.6-33.0); MCHC 32.2 g/dL (31.5-35.7); MCV 96 fL (79-97); MONOCYTES 1 % (Not Estab.); MONOCYTES (ABSOLUTE) 0.1 x10E3/uL (0.1-0.9); NEUTROPHILS 86 % (Not Estab.); NEUTROPHILS (ABSOLUTE) 6.1 x10E3/uL (1.4-7.0); PLATELETS 262 x10E3/uL (150-450); RBC 4.12 x10E6/uL (4.14-5.80); RDW 12.8 % (11.6-15.4); WBC 7.1 x10E3/uL (3.4-10.8)
[2024-08-17] VITALS (7 sets, daily range): BP systolic 155; BP diastolic 105; PULSE 97–108; RESP 15–18; TEMP 97.8; O2SAT 95–96
[2024-08-17 06:32] LABS: BASOPHILS % (AUTO) 0.1 % (0-1); EOSINOPHILS % (AUTO) 0 % (0-6); HEMATOCRIT 34.6 % (42.0-52.0); HEMOGLOBIN 11.5 g/dl (14.0-17.9); LYMPHOCYTES # (AUTO) 2.1 X10'3 (1.1-4.8); LYMPHOCYTES % (AUTO) 13.7 % (21-51); MEAN CORPUSCULAR HEMOGLOBIN 31.2 PG (27.0-31.0); MEAN CORPUSCULAR HGB CONC 33.2 g/dL (33.0-36.5); MEAN CORPUSCULAR VOLUME 93.9 FL (78-98); MEAN PLATELET VOLUME 7.9 FL (7.4-10.4); MONOCYTES % (AUTO) 6.8 % (2-12); NEUTROPHILS # (AUTO) 12.2 X10'3 (1.8-7.7); NEUTROPHILS % (AUTO) 79.4 % (42-75); PLATELET COUNT 336 X10'3 (140-440); RED BLOOD COUNT 3.69 X10'6 (4.70-6.10); RED CELL DISTRIBUTION WIDTH 13.9 % (11.5-14.5); WHITE BLOOD COUNT 15.4 X10'3 (4.5-11.0)
[2024-08-17 06:42] LABS: ALANINE AMINOTRANSFERASE 22 U/L (12-78); ALBUMIN/GLOBULIN RATIO 0.9 (1.1-1.5); ALKALINE PHOSPHATASE 79 IU/L (46-116); ANION GAP 7 (8-16); ASPARTATE AMINO TRANSFERASE 19 U/L (10-37); BILIRUBIN,TOTAL 0.1 MG/DL (0.1-1.0); BLOOD UREA NITROGEN 18 MG/DL (7-18); BUN/CREATININE RATIO 22.5 (10.0-20.0); CALCIUM 8.8 MG/DL (8.5-10.1); CHLORIDE 105 MMOL/L (99-107); GLUCOSE 156 MG/DL (70-104); POTASSIUM 3.9 MMOL/L (3.5-5.1); SODIUM 142 MMOL/L (135-145); TOTAL CARBON DIOXIDE 30.4 MMOL/L (24-32); TOTAL PROTEIN 6.2 G/DL (6.4-8.2); eCRCL 67 ML/MIN; eGFR > 90 ML/MIN
[2024-08-17] MEDS: temazepam 15mg capsule PO PRN (09:45)
[2024-08-17 11:36] LABS: % CD 4 POS. LYMPH 21.7 % (30.8-58.5); % CD 4 POS. LYMPH. 19.4 % (30.8-58.5); % CD 8 POS. LYMPH. 41.9 % (12.0-35.5); % IMMATURE GRANULOCYTES 0 % (Not Estab.); ABS. CD 8 SUPPRESSOR 377 /uL (109-897); ABSOLUTE CD 4 HELPER 175 /uL (359-1519); ABSOLUTE CD 4 HELPER 195 /uL (359-1519); BASOS 0 % (Not Estab.); CD4/CD8 RATIO 0.46 (0.92-3.72); EOS 2 % (Not Estab.); EOS (ABSOLUTE) 0.2 x10E3/uL (0.0-0.4); HEMATOCRIT 40.1 % (37.5-51.0); HEMATOLOGY COMMENTS: Note: (.); HEMOGLOBIN 12.9 g/dL (13.0-17.7); LYMPHS 13 % (Not Estab.); LYMPHS (ABSOLUTE) 0.9 x10E3/uL (0.7-3.1); MCH 30.9 pg (26.6-33.0); MCHC 32.2 g/dL (31.5-35.7); MCV 96 fL (79-97); MONOCYTES 2 % (Not Estab.); MONOCYTES (ABSOLUTE) 0.1 x10E3/uL (0.1-0.9); NEUTROPHILS 83 % (Not Estab.); NEUTROPHILS (ABSOLUTE) 6.1 x10E3/uL (1.4-7.0); PLATELETS 260 x10E3/uL (150-450); RBC 4.18 x10E6/uL (4.14-5.80); RDW 12.6 % (11.6-15.4); WBC 7.4 x10E3/uL (3.4-10.8)
[2024-08-17 11:41] LABS: PLATELET ESTIMATE NORMAL; TOTAL CELLS COUNTED 100
[2024-08-17] MEDS ORDERED: AMOX-580 PO (13:39)
== END 2024-08-17 15:00 | disposition home or self-care (01) | DRG 291 ==
LOC: ER 06:56 → ED HOLD 12:22 → ORTHO 4S 19:37
PROVIDERS: ADMIT Family Medicine; ATTEND Family Medicine
DX: I11.0 Hypertensive heart disease with heart failure (principal); I50.23 Acute on chronic systolic (congestive) heart failure; J96.21 Acute and chronic respiratory failure with hypoxia; J44.1 Chronic obstructive pulmonary disease with (acute) exacerbation; B20 Human immunodeficiency virus [HIV] disease; E46 Unspecified protein-calorie malnutrition; Z68.1 Body mass index [BMI] 19.9 or less, adult; Z20.822 Contact with and (suspected) exposure to COVID-19; E78.5 Hyperlipidemia, unspecified; D64.9 Anemia, unspecified; E83.39 Other disorders of phosphorus metabolism; G62.9 Polyneuropathy, unspecified; G89.4 Chronic pain syndrome; I25.10 Atherosclerotic heart disease of native coronary artery without angina pectoris; I27.20 Pulmonary hypertension, unspecified; N40.0 Benign prostatic hyperplasia without lower urinary tract symptoms; Z72.0 Tobacco use; Z87.442 Personal history of urinary calculi; Z82.49 Family history of ischemic heart disease and other diseases of the circulatory system; Z99.81 Dependence on supplemental oxygen; I95.1 Orthostatic hypotension; Z79.899 Other long term (current) drug therapy; Z91.011 Allergy to milk products; R29.6 Repeated falls
CPT/HCPCS: 36415; 70450; 71045; 80048; 80053; 80061; 80305; 81003; 82272; 82550; 83036; 83605; 83615; 83690; 83735; 83880; 84100; 84145; 84439; 84443; 84480; 84484; 85007; 85025; 85379; 86360; 86361; 87040; 87081; 87502; 87503; 87535; 87811; 93005; 94640; 94760; 97161; 97530; 99285; A4615; G0378; J0131; J0456; J0696; J1644; J2270; J2405; J2919; J3490; J7030; J7060

== ENCOUNTER 2025-04-02 07:19 | Emergency (ER) | payer MEDICARE, MEDICAID ==
[~2025-04-02] VITALS: Ht 165.1 cm; Wt 47.0 kg
[~2025-04-02 07:19] MED LIST changes: +ATOR20TA66 PO; +BUPR-559 PO; -CARV-50 PO; -FLO0.4C PO; -GUAI600T45 PO; -IPRA3AMP9 NEB; +METO200T37 PO; +POTA-207 PO; -PRED10TA23 PO; +TEST5GEL18; +[UNRECOGNIZED DRUG - CODE] SUBCUT
--- NOTE | 2025-04-02 08:00 | Physician Documentation ---
History of Present Illness General Chief Complaint: See Chief Complaint Stated Complaint: RECHECK Time Seen by MD: 07:53 Primary Medical Doctor: Laura christianson History of Present Illness Initial Comments The patient is a 64-year-old male who was recently admitted to the hospital for chest discomfort and had essentially a negative workup and hospital he including a stress test. The patient returns to the emergency room complaining of nausea and vomiting it started last night. Patient states he vomited multiple times. Patient states he has chronic abdominal pain over the last month which he attributes to diverticulosis. Patient complains of cold sweats he denies any fevers. Patient states his pain is not worsened. He states he was supposed to take potassium he has not started taking it. The patient's symptoms are moderate and persistent. Patient states he feels dehydrated. Medication Reconciliation Allergies: Coded Allergies: milk (Verified Allergy, Unknown, 04/02/25) Scheduled Aspirin (Aspirin EC), 1 TAB PO DAILY, (Reported) Atorvastatin Calcium (Atorvastatin Calcium), 1 TAB PO DAILY, (Reported) Bupropion HCl (Bupropion Xl), 1 TAB PO DAILY, (Reported) Bupropion Hcl (Wellbutrin), 100 MG PO TID, (Reported) Dolutegravir Sodium (Tivicay), 1 TAB PO DAILY Dolutegravir Sodium (Tivicay), 1 TAB PO DAILY, (Reported) Dolutegravir Sodium (Tivicay), 1 TAB PO DAILY, (Reported) Emtricitabine/Tenofov Alafenam (Descovy 200-25 mg Tablet), 1 TAB PO DAILY Emtricitabine/Tenofov Alafenam (Descovy 200-25 mg Tablet), 1 TAB PO DAILY, (Reported) Fluticasone Propionate (Flonase), 16 GM NS DAILY, (Reported) Gabapentin (Neurontin), 900 MG PO TID, (Reported) Metoprolol Succinate (Metoprolol Succinate), 1 TAB PO DAILY, (Reported) Potassium Chloride* (K-Dur*), 1 TAB PO DAILY Quetiapine Fumarate (Seroquel), 1 TAB PO HS, (Reported) Somatropin (Serostim), 5 MG SUBCUT DAILY, (Reported) Umeclidinium Brm/Vilanterol Tr (Anoro Ellipta 62.5-25 Mcg INH), 1 PUFFS INH DAILY, (Reported) [marijuanna], 1 AD INH DAILY, (Reported) Scheduled PRN Cyclobenzaprine HCl (Cyclobenzaprine HCl), 1 TAB PO BID PRN for prn, (Reported) Hydrocodone Bit/Acetaminophen 5/325 MG ([place] 5/325 MG), 2 TAB PO Q4H PRN for pain, (Reported) ONDANSETRON ODT 4mg tablet (Ondansetron Odt), 1 TABLET PO Q6H PRN for nausea/vomiting Zolpidem Tartrate* (Ambien*), 2 TAB PO HS PRN for INSOMNIA, (Reported) albuterol inhaler (Pro-Air Inhaler), 1-2 PUFFS PO Q4H PRN for shortness of iker th, (Reported) Miscellaneous Medications Ipratropium/Albuterol Sulfate (IPRAT-ALBUT 0.5-3(2.5) MG/3 ML nebule), 3 ML IH, (Reported) Testosterone (Testosterone), (Reported) Discontinued Medications Carvedilol (Carvedilol), 1 TAB PO BID, (Reported) Past Medical History Past Medical History: Hypertension, COPD, Hepatitis C, Kidney Stones, HIV Past Surgical History: no surgical history Smoking: Cigarettes Alcohol Use: Sober Drug Use: marijuana Lives with: Alone Lives In: Home Occupation: retired Review of Systems All Other Systems at this time: Reviewed and Negative Physical Exam Physical Exam Vital Signs: Temperature: 96.6, Source: Oral, Heart Rate: 90, Respiratory Rate: 18, BP: 158/105, Pulse Oximetry: 97, Weight: 47.000 Oxygen Flow Rate: 0 Physical Exam VITALS: Reviewed and as above. GENERAL: Alert, no apparent distress. HEENT: Normocephalic, atraumatic, PERRL, EOMI, dry mucosa, no erythema RESPIRATORY: Lungs clear, normal breath sounds, no respiratory distress. CHEST: No accessory muscle use, no retractions CV: Regular rate, rhythm, no edema, no murmur, No: JVD GI: Slight diffuse abdominal tenderness, no rebound, guarding, or rigidity BACK: No CVA tenderness, or swelling MUSCULOSKELETAL: No deformities, no edema SKIN: Warm and dry, no rash NEURO: Oriented x4, No motor or sensory deficit PSYCH: Normal mood and affect, no agitation Progress Results/Orders Results/Orders Completed Orders - OHLFS,BRADEN Cohen MD Urinalysis, Cult If Indicated (04/02/25 07:57) Cbc/Diff (04/02/25 08:01) BMP (04/02/25 08:01) Ondansetron Inj. (Zofran 4mg/2ml Vial) (04/02/25 08:35) Normal Saline 1000ml (0.9% Sodium Chlori (04/02/25 08:35) Procalcitonin (04/02/25 08:35) Vital Signs 04/02/25 04/02/25 04/02/25 04/02/25 07:20 07:51 08:56 10:07 Temp 96.6 96.6 Pulse 90 84 89 Resp 16 18 17 18 B/P (MAP) 158/105 141/101 (114) 161/105 (123) Pulse Ox 97 98 98 O2 Flow Rate 0 0 0 04/02/25 11:15 Pulse 91 Resp 16 B/P (MAP) 139/97 Pulse Ox 96 Laboratory Tests Test 04/02/25 09:29 04/02/25 10:25 White Blood Count 12.8 H Red Blood Count 4.90 Hemoglobin 15.1 Hematocrit 45.0 Mean Corpuscular Volume 91.7 Mean Corpuscular Hemoglobin 30.7 Mean Corpuscular Hemoglobin Concent 33.5 Red Cell Distribution Width 14.2 Platelet Count 263 Mean Platelet Volume 8.4 Neutrophils (%) (Auto) 65.6 Lymphocytes (%) (Auto) 25.0 Monocytes (%) (Auto) 6.9 Eosinophils (%) (Auto) 2.0 Basophils (%) (Auto) 0.5 Neutrophils # (Auto) 8.4 H Lymphocytes # (Auto) 3.2 Monocytes # (Auto) 0.9 Eosinophils # (Auto) 0.3 Basophils # (Auto) 0.1 CBC Comment Sodium Level 141 Potassium Level 4.2 Chloride Level 103 Carbon Dioxide Level 30.9 Anion Gap 7 L Blood Urea Nitrogen 16 Creatinine 0.82 Estimated GFR/1.73 m2 > 90 BUN/Creatinine Ratio 19.5 Glucose Level 102 Calcium Level 9.4 Albumin 4.5 Procalcitonin < 0.05 Chemistry Comments Urine Specimen Description Voided Urine Color Yellow Urine Clarity Clear Urine pH 6.5 Urine Specific [place] 1.010 Urine Protein Negative Urine Glucose (UA) Negative Urine Ketones Trace H Urine Occult Blood Negative Urine Nitrite Negative Urine Bilirubin Negative Urine Urobilinogen 0.2 Urine Leukocyte Esterase Negative Urine Culture Indicated Not ind Volume Urine Centrifuged 10 ml Urine Comment Medical Decision Making Findings The patient presents with nausea and vomiting after recently being discharged from the hospital he has a benign abdominal exam patient was treated in the emergency department with IV fluids and Zofran with improvement in his symptoms the patient's pulse oximetry was interpreted as adequate normal as prior hospitalizations were reviewed. In his potline monitor was interpreted as a sinus rhythm. The patient will be discharged his symptoms are improved his labs were reviewed. The patient has a benign abdominal exam his labs were reviewed previous hospitalizations have been reviewed the patient had improvement with the symptoms he will be discharged. Departure Impression: Primary Impression: Nausea and vomiting Qualified Codes: R11.2 - Nausea with vomiting, unspecified Additional Impression: Dehydration Discharge Instructions: Dehydration, Adult, [id number] Referrals: NO PRIMARY CARE PROVIDER (PCP) Prescriptions ONDANSETRON ODT 4mg tablet (ONDANSETRON ODT) 4 Mg Tab.rapdis 1 TABLET PO Q6H PRN for nausea/vomiting, #12 TABLET Prov: BRADEN HERNANDEZ MD 04/02/25 Signature Scribe Signature: no scribe Attestation: The note accurately reflects work and decisions made by me.Braden Hernandez MD 04/04/25 18:50 BRADEN HERNANDEZ MD Apr 02, 2025 08:00
[2025-04-02] MEDS: ondansetron/PF 4mg/2ml inj IV ONE (08:50)
[2025-04-02] MEDS: normal saline 1000ML IV soln IVB ONE (08:50)
[2025-04-02 09:40] LABS: MEAN PLATELET VOLUME 8.4 FL (7.4-10.4); RED CELL DISTRIBUTION WIDTH 14.2 % (11.5-14.5)
[2025-04-02 09:52] LABS: CREATININE 0.82 MG/DL (0.60-1.10); TOTAL CARBON DIOXIDE 30.9 MMOL/L (24-32); eCRCL 61 ML/MIN; eGFR > 90 ML/MIN
[2025-04-02 10:07] VITALS: TEMP 96.6
[2025-04-02] MEDS ORDERED: ONDA-243 PO (10:39)
[2025-04-02 10:57] LABS: LEUKOCYTE ESTERASE ,URINE NEGATIVE (Neg); NITRITES, URINE NEGATIVE (Neg); OCCULT BLOOD,URINE NEGATIVE (Neg)
[2025-04-02 11:00] LABS: UA COLLECTION TYPE VOIDED
[2025-04-02 11:15] VITALS: BP 139/97; PULSE 91; RESP 16; O2SAT 96
== END 2025-04-02 11:30 | disposition home or self-care (01) ==
LOC: ER 07:20
DX: R11.2 Nausea with vomiting, unspecified (principal); E86.0 Dehydration; R07.9 Chest pain, unspecified; I10 Essential (primary) hypertension; J44.9 Chronic obstructive pulmonary disease, unspecified; F12.90 Cannabis use, unspecified, uncomplicated; Z88.8 Allergy status to other drugs, medicaments and biological substances; Z79.82 Long term (current) use of aspirin
CPT/HCPCS: 36415; 80048; 81003; 84145; 85025; 96361; 96374; 99283; J2405; J7030

== ENCOUNTER 2025-05-14 09:32 | Outpatient (CLI) | payer MEDICARE, MEDICAID ==
[~2025-05-14 09:32] MED LIST changes: +ONDA-243 PO
--- NOTE | 2025-05-14 12:04 | RADIOLOGY REPORT ---
Procedure: CT CT CHEST LOW DOSE Reason for study/Clinical History: NICOTINE DEPENDENCE, CIGARETTES, UNCOMPLICATED COMPARISON: CT CT CHEST on DOS: 03/30/25, DI CHEST,SINGLE VIEW on DOS: 03/30/25, DI CHEST,SINGLE VIEW on DOS: 12/08/24, DI CHEST,SINGLE VIEW on DOS: 08/17/24, DI CHEST,SINGLE VIEW on DOS: 08/14/24 TECHNIQUE: Multidetector CT of the chest was performed from the lung apices to the upper abdomen without the use of intravenous contract. Axial, coronal and sagittal multiplanar reformats were performed. Radiation Dose Information: CT Dose: CTDI volume is 1.9 mGy. Dose-length product is 78.2 mGy*cm The dose indicators for CT are the volume Computed Tomography (CT) Dose Index (CTDIvol) and the Dose Length Product (DLP), and are measured in units of mGy and mGy-cm, respectively. These indicators are not patient dose, but values generated from the CT scanner acquisition factors. The report includes radiation exposure data for exposures received during this examination. FINDINGS: Lower neck: Normal thyroid. Lungs: No focal consolidation. Severe centrilobular emphysema. No suspicious pulmonary nodules. Calcified granuloma in the right upper lobe, image 166 measures 0.5 cm. Calcified granuloma in the right lower lobe, image 179 measures 0.4 cm. Heart/Vascular Structures: Coronary artery calcifications. Lymph Nodes: No adenopathy Pleura: No pleural effusion or significant pneumothorax. Musculoskeletal: No acute osseous abnormality. Soft tissues: Normal. Upper abdomen: Limited portions of the upper abdomen are unremarkable. IMPRESSION: No suspicious pulmonary nodule. LUNG RADS Category 1: Continue annual screening with LDCT
--- NOTE | 2025-05-14 12:05 | RADIOLOGY REPORT ---
Procedure: DI ACUTE ABDOMEN Exam Date: 05/14/2025 10:26 AM History: CHRONIC ABD PAIN Comparison Study: None Technique: AP of the chest AP upright of the abdomen AP supine of the abdomen FINDINGS: No focal evidence of airspace disease. The cardiomediastinal silhouette is within normal limits. No acute osseous lesions. Moderate stool burden. Nonobstructive bowel gas pattern noted. There is no evidence for pneumoperitoneum. No abnormal calcifications noted. IMPRESSION: Non-specific gas-filled loops of bowel. Moderate stool burden.
--- NOTE | 2025-05-14 13:42 | RADIOLOGY REPORT ---
CT TEMPORAL BONES WITHOUT INTRAVENOUS CONTRAST INDICATION: UNSPECIFIED HEARING LOSS, LEFT EAR TECHNIQUE: Axial computed tomography images of the temporal bones without intravenous contrast. Sagittal and coronal reformatted images were created and reviewed. This CT exam was performed using one or more of the following dose reduction techniques: automated exposure control, adjustment of the mA and/or kV according to patient size, and/or use of iterative reconstruction technique. COMPARISON: MR MRI ORBITS FACE AND NECK on DOS: 12/09/24, CT CT HEAD on DOS: 12/08/24, CT CT HEAD on DOS: 08/14/24, CT CT HEAD on DOS: 07/17/24 FINDINGS: Right ossicles and middle ear: Unremarkable. Right cochlea: Unremarkable. Right vestibule: Unremarkable. Right semicircular canals: Unremarkable. Right vestibular and cochlear aqueducts: Unremarkable. Right facial nerve canal: Unremarkable. Right internal auditory canal: Unremarkable. Right external auditory canal: Unremarkable. Right mastoid air cells: Unremarkable. Left ossicles and middle ear: Unremarkable. Left cochlea: Unremarkable. Left vestibule: Unremarkable. Left semicircular canals: Unremarkable. Left vestibular and cochlear aqueducts: Unremarkable. Left facial nerve canal: Unremarkable. Left internal auditory canal: Unremarkable. Left external auditory canal: Unremarkable. Left carotid canal: Unremarkable. Left mastoid air cells: Unremarkable. Pneumatization of the bilateral petrous apices. IMPRESSION: 1. Unremarkable high-resolution CT scan of the bilateral temporal bones. 2. No evidence of acute mastoiditis or acute otitis media. Automatic exposure control was used as a dose lowering technique.
== END 2025-05-14 23:59 | disposition home or self-care (01) ==
LOC: RAD 09:32
PROVIDERS: ATTEND Family Medicine
DX: Z12.2 Encounter for screening for malignant neoplasm of respiratory organs (principal); J43.2 Centrilobular emphysema; H91.92 Unspecified hearing loss, left ear; R10.9 Unspecified abdominal pain; F17.210 Nicotine dependence, cigarettes, uncomplicated; R14.3 Flatulence
CPT/HCPCS: 70480; 71271; 74022

== ENCOUNTER 2025-07-12 10:54 | Emergency (ER) | payer MEDICARE, MEDICAID ==
[~2025-07-12] VITALS: Ht 165.1 cm; Wt 46.8 kg
[~2025-07-12 10:54] MED LIST changes: +ZOLP5TAB19 PO; -ZOLP5TAB8 PO
--- NOTE | 2025-07-12 11:11 | ELECTROCARDIOGRAPH REPORT ---
[facility] Test Date: 2025-07-12 Test Time: 11:10:17 Pat Name: ELLEN CARUSO Department: [facility] Patient ID: [id number] Room: Gender: M Voltage Tester: : 1960 Requested By: KVNG HERNANDEZ Order Number: [id number] Reading MD: Dr. BERNA Shine Measurements Intervals [place] Rate: 79 P: 92 KS: 150 QRS: 55 QRSD: 96 T: 59 QT: 395 QTc: 453 Interpretive Statements Sinus rhythm Consider right atrial enlargement Electronically Signed On 07-12-2025 17:36:[address] BERNA Shine Please click the below link to view image of tracing.
[2025-07-12 11:26] LABS: MEAN PLATELET VOLUME 8.1 FL (7.4-10.4); RED CELL DISTRIBUTION WIDTH 14.3 % (11.5-14.5)
--- NOTE | 2025-07-12 11:33 | RADIOLOGY REPORT ---
EXAM: DI CHEST,SINGLE VIEW Indication: CP Technique: Single frontal view of the chest was obtained Comparison: CT CT CHEST LOW DOSE on DOS: 05/14/25, CT CT CHEST on DOS: 03/30/25, DI CHEST,SINGLE VIEW on DOS: 03/30/25, DI CHEST,SINGLE VIEW on DOS: 12/08/24, DI CHEST,SINGLE VIEW on DOS: 08/17/24 FINDINGS: Lines and Tubes: None Lungs: No focal consolidation. Pleura: No effusion. No pneumothorax. Cardiomediastinal contours: Unremarkable Bones: No acute osseous abnormality. IMPRESSION: No acute cardiopulmonary disease.
[2025-07-12 11:46] LABS: CREATININE 1.39 MG/DL (0.60-1.10); PRO BRAIN NATRIURETIC PEPTIDE 88 PG/ML (0-125); TOTAL CARBON DIOXIDE 30.2 MMOL/L (24-32); eCRCL 35 ML/MIN; eGFR 51 ML/MIN
--- NOTE | 2025-07-12 12:17 | Physician Documentation ---
History of Present Illness CC: KVNG HERNANDEZ MD ~ Chief Complaint: Syncope Stated Complaint: FALL Time Seen by MD: 11:49 OK to notify your PCP?: Yes Primary Medical Doctor: Laura christianson Mode of Arrival: POV HPI This is a 65-year-old male with a history of HIV, COPD, active tobacco use, arthritis presents to the ER with a chief complaint of recurrent syncopal episodes. Patient endorses that night his neighbors found him sc reaming and called the paramedics. He could not remember the episode and was confused on Saturday as well. He endorses recurrent blackouts which were spontaneous awhile sitting, standing or urinating (three episodes in last weekend). He takes Ambien to help with safe which he has stopped two days ago thinking it could be the culprit. He lost consciousness and was on the floor for few hours and does not know when he regained consciousness. He was unable to see during the episode. He is not on blood thinners and does not know if he hit his head. He denies any cardiac symptoms including chest pain, palpitations, sweating. He has a associated headaches and has had nightmares. He denies any alcohol or drug use. He denies any fever, burning in urine, recen t travel or sick contacts. He lives alone and his [facility] worker checks on him from Saturday to Saturday. He sees Dr. Castellon nanny/household manager but does not know the indication. He also has chronic back pain and takes back and neck injections by pain doctor. He appears dehydrated and endorses drinking less water lately. Timing/Duration: days Loss of Consciousness: unsure Presyncopal Phase: blurred vision Syncopal Phase: at rest, with standing Postsyncopal Phase: delayed recovery Associated Signs and Symptoms: blurred vision, confusion, headache Medication Reconciliation Allergies: Coded Allergies: milk (Verified Allergy, Unknown, 07/12/25) Scheduled Aspirin (Aspirin EC), 1 TAB PO DAILY, (Reported) Atorvastatin Calcium (Atorvastatin Calcium), 1 TAB PO DAILY, (Reported) Bupropion HCl (Bupropion Xl), 1 TAB PO DAILY, (Reported) Bupropion Hcl (Wellbutrin), 100 MG PO TID, (Reported) Dolutegravir Sodium (Tivicay), 1 TAB PO DAILY Dolutegravir Sodium (Tivicay), 1 TAB PO DAILY, (Reported) Dolutegravir Sodium (Tivicay), 1 TAB PO DAILY, (Reported) Emtricitabine/Tenofov Alafenam (Descovy 200-25 mg Tablet), 1 TAB PO DAILY Emtricitabine/Tenofov Alafenam (Descovy 200-25 mg Tablet), 1 TAB PO DAILY, (Reported) Fluticasone Propionate (Flonase), 16 GM NS DAILY, (Reported) Gabapentin (Neurontin), 900 MG PO TID, (Reported) Metoprolol Succinate (Metoprolol Succinate), 1 TAB PO DAILY, (Reported) Potassium Chloride* (K-Dur*), 1 TAB PO DAILY Quetiapine Fumarate (Seroquel), 1 TAB PO HS, (Reported) Somatropin (Serostim), 5 MG SUBCUT DAILY, (Reported) Umeclidinium Brm/Vilanterol Tr (Anoro Ellipta 62.5-25 Mcg INH), 1 PUFFS INH DAILY, (Reported) [marijuanna], 1 AD INH DAILY, (Reported) Scheduled PRN Cyclobenzaprine HCl (Cyclobenzaprine HCl), 1 TAB PO BID PRN for prn, (Reported) Hydrocodone Bit/Acetaminophen 5/325 MG ([place] 5/325 MG), 2 TAB PO Q4H PRN for pain, (Reported) ONDANSETRON ODT 4mg tablet (Ondansetron Odt), 1 TABLET PO Q6H PRN for nausea/vomiting Zolpidem Tartrate* (Ambien*), 2 TAB PO HS PRN for INSOMNIA, (Reported) albuterol inhaler (Pro-Air Inhaler), 1-2 PUFFS PO Q4H PRN for shortness of breath, (Reported) Miscellaneous Medications Ipratropium/Albuterol Sulfate (IPRAT-ALBUT 0.5-3(2.5) MG/3 ML nebule), 3 ML IH, (Reported) Testosterone (Testosterone), (Reported) Past Medical History Past Medical History: Hypertension, COPD, Hepatitis C, Kidney Stones, HIV Other Past Medical History: HIV, COPD, arthritis Past Surgical History: no surgical history Patient History: FH: borderline diabetes FATHER, , Age: 79, Cause: Myocardial infarct brother, Name: Nathan Torres, Age: 73, Not a twin Alcohol Use: Sober Drug Use: marijuana Lives with: Alone Lives In: Home Occupation: retired Review of Systems ROS Constitutional: No fever, chills, dizziness, weakness, weight gain or loss Eyes: No pain, erythema, discharge, blurring of vision ENT: No sore throat, epistaxis, tinnitus Cardiovascular: No palpitations, syncope, lower extremity edema, paroxysmal nocturnal dyspnea Respiratory: Pain in ribs. No hemoptysis Gastrointestinal: Normal appetite. No nausea, vomiting, diarrhea, constipation, hematemesis, abdominal pain, bloating, melena or fresh blood Genitourinary: No frequency, urgency, nocturia, hematuria or dysuria Musculoskeletal: Pain in the right leg. No arthralgias or myalgias Integumentary: No change in skin, hair, nails. No swelling, bruising, abrasions Neurologic: Positive for headache, neck pain, no numbness or tingling of the extremities, weakness Psychiatric: Positive for nightmares. No delusions, depression, loss of inte rest in normal activity or change in sleep pattern, hallucinations, suicidal ideations Endocrine: No fatigue, weakness, polydipsia, polyuria, change in appetite, heat or cold intolerance, sweating, dry skin Hematological: No bleeding, petechiae, bruising Allergies: No asthma or urticaria Physical Exam Vital Signs: Temperature: 96.9, Source: Oral, Heart Rate: 76, Respiratory Rate: 16, BP: 117/81, Pulse Oximetry: 97, Weight: 46.800 Oxygen Flow Rate: 0 Physical Exam General: Elderly, frail-appearing male, Awake and Alert, no acute distress. HEENT: Conjunctiva pink, Sclera clear, Mucus Membranes dry Neck: Supple without masses and tenderness. Resp: Unlabored. Slightly decreased breath sounds bilaterally. No wheezing, rhonchi Heart: Regular rhythm, normal S1 and S2, no rub, murmur or gallop, muffled heart sounds. Abdomen: Soft and non tender no organomegaly. Normal bowel sounds x4 quadrant normoactive. No guarding or rigidity. Extremities: Normal ROM, no swelling, nontender. No cyanosis,clubbing or edema. PRINCIPAL ACCOUNT CLERK: No gross motor or sensory abnormalities. Skin: Warm and Dry. Progress Progress Note Patient had a CT head showed no acute intracranial abnormalities, UA, U tox, CBC was within normal limits, CMP which showed slightly elevated creatinine. Patient received 1 L bolus of IV fluids, orthostatic vitals Results/Orders Reviewed/noted all lab results: Yes Results/Orders Orders - KVNG HERNANDEZ MD Chest,Single View (07/12/25 11:02) Monitor (07/12/25 11:02) Saline Lock (07/12/25 11:02) Oxygen (07/12/25 11:02) Electrocardiogram (07/12/25 11:02) Completed Orders - KVNG HERNANDEZ MD Chest,Single View (07/12/25 11:02) Cbc/Diff (07/12/25 11:02) BMP (07/12/25 11:02) PBNP (07/12/25 11:02) Electrocardiogram (07/12/25 11:02) Hs Troponin I W Calculations (07/12/25 11:02) Hs Troponin I W Calculations (07/12/25 13:02) CK (07/12/25 11:17) Vital Signs 07/12/25 07/12/25 07/12/25 07/12/25 10:56 11:39 11:42 12:52 Temp 96.9 Pulse 85 76 70 Resp 12 18 16 16 B/P (MAP) 110/79 117/81 (93) 131/89 (103) Pulse Ox 94 97 96 O2 Flow Rate 0 0 0 07/12/25 07/12/25 07/12/25 14:05 14:50 15:36 Temp 98.0 Pulse 82 82 78 84 84 Resp 16 16 B/P (MAP) 131/97 (108) 148/101 144/98 129/94 121/92 Pulse Ox 94 95 O2 Flow Rate 0 Laboratory Tests Test 07/12/25 11:17 07/12/25 13:06 07/12/25 14:10 White Blood Count 7.8 Red Blood Count 4.47 L Hemoglobin 13.9 L Hematocrit 41.5 L Mean Corpuscular Volume 92.8 Mean Corpuscular Hemoglobin 31.1 H Mean Corpuscular Hemoglobin Concent 33.5 Red Cell Distribution Width 14.3 Platelet Count 229 Mean Platelet Volume 8.1 Neutrophils (%) (Auto) 55.3 Lymphocytes (%) (Auto) 33.0 Monocytes (%) (Auto) 7.8 Eosinophils (%) (Auto) 3.4 Basophils (%) (Auto) 0.5 Neutrophils # (Auto) 4.3 Lymphocytes # (Auto) 2.6 Monocytes # (Auto) 0.6 Eosinophils # (Auto) 0.3 Basophils # (Auto) 0.0 CBC Comment Sodium Level 144 Potassium Level 3.7 Chloride Level 105 Carbon Dioxide Level 30.2 Anion Gap 9 Blood Urea Nitrogen 21 H Creatinine 1.39 H Estimated GFR/1.73 m2 51 BUN/Creatinine Ratio 15.1 Glucose Level 137 H Calcium Level 8.6 Total Creatine Kinase 1167 H Troponin I High Sensitivity 7 6 Pro-B-Type Natriuretic Peptide 88 Albumin 4.1 Chemistry Comments Troponin I High Sens Percent Delta 14 Troponin I Hi Sens Absolute Change -1 Urine Specimen Description Cln catch midstream Urine Color Yellow Urine Clarity Clear Urine pH 7.0 Urine Specific [place] 1.015 Urine Protein Trace Urine Glucose (UA) Negative Urine Ketones Trace H Urine Occult Blood Negative Urine Nitrite Negative Urine Bilirubin Small Urine Urobilinogen 4.0 H Urine Leukocyte Esterase Negative Urine RBC 3-10 Urine WBC 0-4 Urine Squamous Epithelial Cells Few Urine Transitional Epithelial Cells Few Urine Bacteria Few Urine Hyaline Casts 5-10 Urine Mucus Moderate Volume Urine Centrifuged 10 ml Urine Comment Urine Opiates Screen Positive Urine Methadone Screen Negative Urine Fentanyl Screen Negative Urine Barbiturates Screen Negative Urine Phencyclidine Screen Negative Urine Amphetamines Screen Negative Urine Benzodiazepines Screen Negative Urine Cocaine Screen Negative Urine Cannabinoids Screen Positive Drug Screen Comment Medical Decision Making Additional information obtaine: N/A Findings CT head showed no acute intracranial abnormalities and EKG showed sinus rhythm. Orthostatic vitals were positive with blood pressure in the 148 on standing in 121 on supine position. Laboratory workup was significant for elevated creatinine kinase and elevated creatinine likely from dehydration. Patient received 1 L IV fluid bolus. Patient prefers to follow up with outpatient Cardiology and Neurology regarding his syncopal episodes and feels better after hydration. TIA is less likely given no risk factors and no history of strokes. Differential Dx:Considerations: Include: CVA, cerebral occlusion, dehydration, dysrhythmia, electrolyte disorder, encephalopathy, hypoglycemia, hypovolemia, labyrinthitis, Meniere's disease, pulmonary embolus, TIA, vasovagal, VBI, vertigo central, vertigo peripheral, vestibular neuronitis, other Departure Disposition: 01 HOME / SELF CARE / HOMELESS Impression: Primary Impression: Syncope Additional Impression: Dehydration Condition: Stable Additional Instructions: Follow up with your PCP, nanny/household manager Dr. Castellon and establish care with a neurologist. You may need a outpatient loop recorder for a few weeks to detect any arrhythmias. You may also need a outpatient EEG to rule out seizures, further imaging of head to rule out TIA. Hold Ambien for now. Advise plenty hydration. Referrals: NO PRIMARY CARE PROVIDER (PCP) Education Educated: Patient Educated regarding: need for follow up Additional Comment Seen with PA/HIGHWAY DESIGN ENGINEER The patient was seen with the medical laboratory technologist, I have reviewed the medical residents known agree with the note as written and the assessment and plan as written. I have supervised all aspects of the residents care. The the patient was independently examined by myself the patient has had episodes of syncope since starting Ambien the patient's workup here in the emergency room was unremarkable. The patient was found to be slightly clinically dehydrated. The patient will be advised to stopped taking Ambien at this point in his cardiac workup was unremarkable his CT head was unremarkable as cardiac markers were unremarkable as well as his EKG was unremarkable. The patient's environmental monitoring technician was interpreted as a sinus rhythm and the patient's pulse oximetry was interpreted as normal and adequate. The patient will be discharged with an advised to return for worsening of his symptoms the patient's EKG was interpr eted by me as showing a sinus rhythm with a rate of 70 with a normal axis there was no ST elevation or ST-depression the patient's EKG was interpreted as normal EKG. Signature Scribe Signature: No scribe Attestation: Patient was seen and examined with attending physician Dr. kindra Cornejo, PGY2 Internal medicine resident BRYCE WILLIS, RES Jul 12, 2025 12:17 KVNG HERNANDEZ MD Jul 13, 2025 11:36
[2025-07-12] MEDS: normal saline 1000ml 1,000 ML IV ONE (12:18)
--- NOTE | 2025-07-12 12:48 | RADIOLOGY REPORT ---
EXAM: CT CT HEAD INDICATION: syncope, fall after LOC TECHNIQUE: CT images of the head were obtained without administration of IV contrast. CT scans at this facility use dose modulation, iterative reconstruction, and/or weight based dosing when appropriate to reduce radiation dose to as low as reasonably achievable. COMPARISON: MR MRI HEAD on DOS: 12/08/24 FINDINGS: PARENCHYMA: No acute hemorrhage. There is no mass effect, midline shift, or herniation. There is preservation of the kwan white differentiation. Senescent basal ganglia calcification. Minimal periventricular white matter hypointensities likely reflecting chronic microvascular ischemic change VENTRICLES: No hydrocephalus. EXTRA-AXIAL SPACES: No extra-axial fluid collections. OTHER: The bony structures are intact. Visualized portions of the paranasal sinuses and mastoid air cells are clear. IMPRESSION: 1. No CT evidence of an acute intracranial abnormality.
[2025-07-12 14:45] LABS: LEUKOCYTE ESTERASE ,URINE NEGATIVE (Neg); NITRITES, URINE NEGATIVE (Neg); OCCULT BLOOD,URINE NEGATIVE (Neg)
[2025-07-12 14:51] LABS: URINE AMPHETAMINE SCREEN NEGATIVE (Neg); URINE BARBITUATE SCREEN NEGATIVE (Neg); URINE BENZODIAZEPINES SCREEN NEGATIVE (Neg); URINE CANNABINOID SCREEN POSITIVE (Neg); URINE COCAINE SCREEN NEGATIVE (Neg); URINE METHADONE SCREEN NEGATIVE (Neg); URINE OPIATE SCREEN POSITIVE (Neg); URINE PHENCYCLIDINE SCREEN NEGATIVE (Neg)
[2025-07-12 14:57] LABS: UA COLLECTION TYPE CLN CATCH MIDSTREAM
[2025-07-12 15:00] LABS: MUCUS STRANDS MODERATE /LPF (Neg); SQUAMOUS EPITHELIAL CELL,UR FEW /LPF (FEW)
[2025-07-12 15:36] VITALS: BP 144/98; PULSE 78; RESP 16; TEMP 98; O2SAT 95
== END 2025-07-12 15:38 | disposition home or self-care (01) ==
LOC: ER 10:54
DX: R55 Syncope and collapse (principal); E86.0 Dehydration; R06.02 Shortness of breath; J44.9 Chronic obstructive pulmonary disease, unspecified; I10 Essential (primary) hypertension; M19.90 Unspecified osteoarthritis, unspecified site; F12.90 Cannabis use, unspecified, uncomplicated; F10.90 Alcohol use, unspecified, uncomplicated; Z88.8 Allergy status to other drugs, medicaments and biological substances; Z91.0110 Allergy to milk products, unspecified; Z79.82 Long term (current) use of aspirin; Y90.9 Presence of alcohol in blood, level not specified
CPT/HCPCS: 36415; 70450; 71045; 80048; 80305; 81001; 82550; 83880; 84484; 85025; 93005; 96360; 99285; J7030